=== PATIENT | female | born 1945 | race Caucasian/White ===

== ENCOUNTER → 2017-06-06 | Outpatient (CLI) | payer MEDICARE, BC ==
[~2017-06-06] MED LIST: ALPRAZOLAM PO; BENADRYL PO; LIBRAX CAPSULE1 CAP PO; PERCOCET5/325 PO; PHENERGAN PO
--- NOTE | ~2017-06-06 | US37 ---
[facility] A Service of [facility] & [facility] RADIOLOGY TEXT RESULTS PATIENT: YESSI CABELLO LOCATION: SNIV : 45 UNIT #: [id number] AGE: [address]: BISHOP KNOX MD SEX: F ORDER DR: [id number] [address] [address] [id number] MR#: [id number] Acc #: [id number] NAME: YESSI CABELLO : 1945 SEX: F STUDY DATE/TIME: 06/06/2017 14:43 UNIT: SNIV ROOM: STUDY DESCRIPTION: US Carotid W/Doppler Bilateral Attending Physician: Bishop Knox M.D. Referring Physician: Bishop Knox M.D. Ordering Physician: Bishop Knox M.D. Primary Care Physician: Bishop Knox M.D. MEDICAL IMAGING REPORT This report is preliminary unless electronic signature is present. DATE OF EXAM 06/06/2017 EXAMINATION Bilateral carotid Duplex. CLINICAL HISTORY Headaches and dizziness. FINDINGS There is patent flow seen throughout the right common carotid, internal carotid and external carotid arteries. There is some mild, irregular appearing atherosclerosis seen in the right carotid bifurcation extending to the proximal internal carotid artery. The right common carotid artery peak velocity is 93 cm/sec. The right internal carotid artery peak systolic over end-diastolic velocities are: Proximal 94/18 cm/sec, mid 95/24 cm/sec, distal 94/25 cm/sec. The right external carotid artery peak velocity is 128 cm/sec, and the vertebral artery 48 cm/sec. The right ICA:CCA ratio is 1.0. There is patent flow seen throughout the left common carotid, internal carotid and external carotid arteries. At the left carotid bifurcation, there is some mild, heterogeneous and echogenic plaque. The left common carotid artery peak velocity is 100 cm/sec. The left internal carotid artery, peak systolic over end diastolic velocities are: Proximal 100/29 cm/sec, mid 77/23 cm/sec, distal 86/27 cm/sec. The left external carotid artery peak velocity is 117 cm/sec, and vertebral artery 59 cm/sec. The left ICA:CCA ratio is 1.0. IMPRESSION 1. The right carotid artery has minimal atherosclerosis that is not hemodynamically significant by duplex criteria (less than 50%). [facility] A Service of [facility] & [facility] RADIOLOGY TEXT RESULTS PATIENT: YESSI CABELLO LOCATION: SNIV : 45 UNIT #: [id number] AGE: [address]: BISHOP KNOX MD SEX: F ORDER DR: 2. The left carotid artery has minimal atherosclerosis that is not hemodynamically significant by duplex criteria (less than 50%). 3. Vertebral flow is antegrade bilaterally. Dictated by... David Gutierrez M.D. THIS IS AN ELECTRONICALLY VERIFIED REPORT David Gutierrez M.D. at 06/07/2017 1:12 PM Stephen TD: 06/06/2017 21:23 JOB #: [id number] MEDICAL IMAGING REPORT Page 1 of 1
== END | disposition home or self-care (01) ==
LOC: SNIV 14:21
DX: R42 Dizziness and giddiness (principal); R51 Headache
CPT/HCPCS: 93880